=== PATIENT | male | born 1965 | race Caucasian/White ===

== ENCOUNTER 2016-12-02 15:13 | Emergency (ER) | payer BC ==
[2016-12-02 15:24] VITALS: BP 136/74
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
== END 2016-12-02 15:56 | disposition home or self-care (01) ==
LOC: UCEAST 15:13
DX: L03.116 Cellulitis of left lower limb (principal)
CPT/HCPCS: 99202; G0463

== ENCOUNTER 2018-05-06 11:05 | Emergency (ER) | payer BC ==
[2018-05-06 11:39] VITALS: BP 129/75
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
== END 2018-05-06 13:11 | disposition home or self-care (01) ==
LOC: UCEAST 11:05
DX: M25.562 Pain in left knee (principal); M25.462 Effusion, left knee; F17.210 Nicotine dependence, cigarettes, uncomplicated
CPT/HCPCS: 99211; G0463

== ENCOUNTER 2019-04-07 13:44 | Emergency (ER) | payer BC ==
[2019-04-07 14:17] VITALS: BP 132/75
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
== END 2019-04-07 15:43 | disposition home or self-care (01) ==
LOC: UCEAST 13:44
DX: J20.9 Acute bronchitis, unspecified (principal); J32.9 Chronic sinusitis, unspecified; F17.210 Nicotine dependence, cigarettes, uncomplicated
CPT/HCPCS: 71046; 99211; G0463